=== PATIENT | female | born 1995 | race American Indian/Alaskan Native ===

== ENCOUNTER 2021-02-14 06:21 | Emergency (ER) | payer SELFPAY ==
[2021-02-14 06:38] VITALS: BP 107/50
[2021-02-14 07:08] LABS: Basophils % (Auto) 0.2 % (0.0-1.8); Eosinophils # (Auto) 0.4 K/mm3 (0.0-0.4); Eosinophils % (Auto) 4.7 % (0.0-4.3); Hematocrit 37.5 % (30.3-42.9); Hemoglobin 12.2 gm/dl (10.1-14.3); Lymphocytes # (Auto) 2.4 K/mm3 (1.2-5.4); Mean Corpuscular HGB Conc 33 % (30-34); Mean Corpuscular Volume 74 fl (79-97); Monocytes # (Auto) 0.9 K/mm3 (0.0-0.8); Monocytes % (Auto) 10.2 % (0.0-7.3); Platelet Count 275 K/mm3 (140-440); Red Blood Count 5.04 M/mm3 (3.65-5.03); Red Cell Distribution Width 16.6 % (13.2-15.2)
[2021-02-14 07:21] LABS: Alanine Aminotransferase 10 units/L (7-56); Albumin 4.3 g/dL (3.9-5); BUN/Creatinine Ratio 13; Blood Urea Nitrogen 10 mg/dL (7-17); Calcium 9.3 mg/dL (8.4-10.2); Hemolysis Index 3
--- NOTE | 2021-02-14 07:36 | Emergency Department Report ---
ED Abdominal Pain HPI - General Chief Complaint: Abdominal Pain Stated Complaint: ABDOMINAL PAIN Time Seen by Provider: 02/14/21 07:23 Source: patient Mode of arrival: Ambulatory Limitations: No Limitations - History of Present Illness Initial Comments: 25-year-old female complaining of abdominal cramps and not emptying her bladder completely x2 days. She also reports daily episode of 1 loose stools and vomiting once daily for 1 week. Her last menstrual period was on January 03, 2021 she reports a history of irregular periods. Patient denies any fever any chills she does denies any vaginal bleeding. She is in no acute distress MD Complaint: abdominal pain -: days(s) Location: suprapubic Migration to: no migration Severity: moderate Severity scale (0 -10): 5 Quality: cramping Consistency: constant Improves With: nothing Worsens With: nothing Associated Symptoms: vomiting, diarrhea. denies: nausea, fever, chills, constipation, dysuria, hematemesis, melena - Related Data LMP Date: 01/03/21 Previous Rx's Medication Instructions Recorded Last Taken Type Sulfamethoxazole/Trimethoprim 1 each PO BID 5 Days #10 tablet 02/14/21 Unknown Rx [Bactrim DS TAB] Allergies Allergy/AdvReac Type Severity Reaction Status Date / Time No Known Allergies Allergy Unverified 02/14/21 06:40 ED Review of Systems ROS: Stated complaint: ABDOMINAL PAIN Other details as noted in HPI Comment: All other systems reviewed and negative Constitutional: denies: chills, fever ENT: denies: ear pain, throat pain, dental pain, hearing loss, congestion Cardiovascular: denies: chest pain, palpitations Endocrine: denies: excessive sweating, flushing Gastrointestinal: denies: abdominal pain, diarrhea, constipation ED Past Medical Hx - Past Medical History Previous Medical History?: No - Surgical History Past Surgical History?: No - Social History Smoking Status: Never Smoker Substance Use Type: None - Medications Home Medications: Home Medications Medication Instructions Recorded Confirmed Last Taken Type Sulfamethoxazole/Trimethoprim 1 each PO BID 5 Days #10 tablet 02/14/21 Unknown Rx [Bactrim DS TAB] ED Physical Exam - General Limitations: No Limitations General appearance: alert, in no apparent distress - Head Head exam: Absent: atraumatic, normal inspection - Eye Eye exam: Present: normal appearance - ENT ENT exam: Present: normal exam - Respiratory Respiratory exam: Present: normal lung sounds bilaterally - Cardiovascular Cardiovascular Exam: Present: regular rate - GI/Abdominal GI/Abdominal exam: Present: soft, tenderness (Suprapubic region), normal bowel sounds. Absent: distended, guarding, rebound - Extremities Exam Extremities exam: Present: normal inspection - Back Exam Back exam: Present: normal inspection - Neurological Exam Neurological exam: Present: alert, oriented X3 - Skin Skin exam: Present: warm, dry, intact ED Course Vital Signs 02/14/21 02/14/21 06:33 09:16 Temperature 98.2 F Pulse Rate 73 Respiratory 18 18 Rate Blood Pressure 107/50 O2 Sat by Pulse 98 Oximetry - Reevaluation(s) Reevaluation #1: 02/14/21 09 result8:30 Patient in no distress acute distress awaiting urine results. Labs in no acute findings I notified patient of negative ED Medical Decision Making - Lab Data Result diagrams: 02/14/21 06:47 02/14/21 06:47 - Medical Decision Making 25-year-old female with complaints of abdominal cramping and feeling as if she is not emptying her bladder. Blood work no acute findings she does have a negative test her urine is positive WBC of 156. Plan to treat for urinary tract infection Critical Care Time: No Critical care attestation.: If time is entered above; I have spent that time in minutes in the direct care of this critically ill patient, excluding procedure time. ED Disposition Clinical Impression: UTI (urinary tract infection) Qualifiers: Urinary tract infection type: acute cystitis Hematuria presence: with hematuria Qualified Code(s): N30.01 - Acute cystitis with hematuria Disposition: TO HOME OR SELFCARE Is pt being admited?: No Does the pt Need Aspirin: No Condition: Stable Instructions: Urinary Tract Infection, Adult, Abdominal Pain (ED) Additional Instructions: Drink plenty fluids at least 6 to 8 glasses of water daily. Take antibiotic as prescribed. It is okay to take Tylenol or Advil [id number] as directed by package insert. Empty your bladder do not hold your urine and void after sex if you develop worsening pain inability to urinate please return to the emergency room or follow-up immediately Prescriptions: Sulfamethoxazole/Trimethoprim [Bactrim DS TAB] 1 each PO BID 5 Days #10 tablet Referrals: PRIMARY CAREMD [Primary Care Provider] - 3-5 Days PANCHITO ANDRADE MD [Staff Physician] - 3-5 Days Time of Disposition: 09:22
[2021-02-14 08:38] LABS: Bacteria,Urine 1+ /HPF (Negative); Bilirubin,Urine NEG (Negative); Blood,Urine SM (Negative); Color,Urine Yellow (Yellow); Mucus,Urine 2+ /HPF; Urobilinogen,Urine < 2.0 mg/dL (<2.0)
[2021-02-14] MEDS ORDERED: SULFAMETHOXAZOLE/TRIMETHOPRIM 800/160MG DS TAB PO ONE (09:12)
[2021-02-14] MEDS ORDERED: IBUPROFEN 600 MG TAB PO ONE (09:13)
== END 2021-02-14 09:33 | disposition home or self-care (01) ==
LOC: ED 06:21
DX: N39.0 Urinary tract infection, site not specified (principal); Z79.899 Other long term (current) drug therapy
CPT/HCPCS: 36415; 80053; 81001; 83690; 84703; 85025; 99283

== ENCOUNTER 2022-03-09 07:26 | Emergency (ER) | payer SELFPAY ==
[2022-03-09 08:23] LABS: Bilirubin,Urine NEG (Negative); Blood,Urine NEG (Negative); Color,Urine Yellow (Yellow); Mucus,Urine FEW /HPF; Protein,Urine <15 mg/dL mg/dL (Negative); Urobilinogen,Urine < 2.0 mg/dL (<2.0); WBC,Urine < 1.0 /HPF (0.0-6.0)
--- NOTE | 2022-03-09 08:52 | Emergency Department Report ---
ED Dysuria HPI - HPI Chief Complaint: Urogenital-Female Stated Complaint: VAGINAL ITCHING Time Seen by Provider: 03/09/22 08:43 Duration: 2 Days Location of Discomfort: Other Symptoms: Dysuria: No, Frequency: No, Suprapubic Pain: No, Flank Pain: No, Fever: No, Hematuria: No, Abdominal Pain: No, Previous UTI's: No Other History: Patient is a 26-year-old female that comes to the ER with vaginal itching. She denies discharge. She denies pain. She denies fever or chills. Last menstrual period 1 week ago. Abdomen soft nontender. No CVA tenderness. Patient ambulatory with normal vital signs in ER. She has a nonmedical emergency. ED Review of Systems ROS: Stated complaint: VAGINAL ITCHING Other details as noted in HPI Comment: All other systems reviewed and negative ED Past Medical Hx - Past Medical History Previous Medical History?: No - Surgical History Past Surgical History?: No - Family History Family history: no significant - Social History Smoking Status: Never Smoker Substance Use Type: None - Medications Home Medications: Home Medications Medication Instructions Recorded Confirmed Last Taken Type Sulfamethoxazole/Trimethoprim 1 each PO BID 5 Days #10 tablet 02/14/21 Unknown Rx [Bactrim DS TAB] Dysuria Exam - Exam General: Vital signs noted. No distress. Alert and acting appropriately. Exam: Yes Moist Mucous Membranes, No CVA Tenderness, No Abdominal Tenderness, No Rigidity or Guarding Labs: Lab Results 03/09/22 Range/Units 08:05 Urine Bilirubin Neg (Negative) Urine RBC (Auto) 1.0 (0.0-6.0) /HPF U Epithel Cells (Auto) 5.0 (0-13.0) /HPF ED Course Vital Signs 03/09/22 08:00 Temperature 97.7 F Pulse Rate 65 Respiratory 14 Rate Blood Pressure 112/45 O2 Sat by Pulse 100 Oximetry ED Medical Decision Making - Medical Decision Making Vital Signs 03/09/22 08:00 Temperature 97.7 F Pulse Rate 65 Respiratory 14 Rate Blood Pressure 112/45 O2 Sat by Pulse 100 Oximetry Patient has a nonmedical emergency. She has been referred to PCP - Differential Diagnosis Nonmedical emergency for vaginal itching Critical care attestation.: If time is entered above; I have spent that time in minutes in the direct care of this critically ill patient, excluding procedure time. ED Disposition Clinical Impression: Vaginal itching Disposition: 07 LEFT WITHOUT BEING SEEN Is pt being admited?: No Does the pt Need Aspirin: No Condition: Stable Additional Instructions: You have a nonmedical emergency. You need to be seen by primary care or [facility]. Referrals below. Referrals: PANCHITO ANDRADE MD [Primary Care Provider] - 3-5 Days ROSALIE BROWN MD [Staff Physician] - 3-5 Days Time of Disposition: 09:13
[2022-03-09 10:00] VITALS: BP 132/87
== END 2022-03-09 09:59 | disposition left against medical advice (07) ==
LOC: ED 07:26
DX: L29.2 Pruritus vulvae (principal)
CPT/HCPCS: 81001; 99282